=== PATIENT | female | born 1990 | race Caucasian/White ===

== ENCOUNTER 2018-01-07 17:59 | Inpatient (IN) | payer BC ==
[2018-01-07] MEDS: NA CHLORIDE 0.9% 1,000 ML IV SCH (22:10)
[2018-01-07] MEDS: Levofloxacin500mg IV 500 MG/100 ML BAG IV SCH (22:10)
--- NOTE | 2018-01-07 22:36 | P.HP ---
Certification for Inpatient Patient admitted to: Inpatient With expected LOS: >2 Midnights Practitioner: I am a practitioner with admitting privileges, knowledge of patient current condition, hospital course, and medical plan of care. Services: Services provided to patient in accordance with Admission requirements found in Title 42 Section 412.3 of the Code of Federal Regulations Patient History Date of Service: 01/07/18 Reason for admission: Sepsis, pyelonephritis History of Present Illness: Ms Rosado is a 27-year-old woman start about 3 days ago with fever, right flank pain radiated to abdomen. It was associated with nausea and vomiting. The pain was constant with periods of exacerbation, maximal intensity 8/10. She has never had these symptoms before. She denied any burning urination. Today she went to [facility], where UA was abnormal, lab work was remarkable for leukocytosis 14.2, CT abdomen and pelvis consistent with acute right pyelonephritis. The patient then was transferred to our facility to start IV antibiotics. Allergies No Known Allergies Allergy (Verified 01/07/18 20:39) - Past Medical/Surgical History Diabetic: No -: ovarian cyst -: laparotomy-ovarian cysectomy -: breast augmentation -: cesarian sectionx2 - Family History Father -: Stroke Mother Notes: no medical hx - Social History Smoking Status: Current every day smoker Counseled patient to stop smoking for: less than 10 minutes Smoking therapy provided: Yes Patient receptive to therapy: No Alcohol use: Yes CD- Drugs: No Caffeine use: Yes Place of Residence: Home Review of Systems 10-point ROS is otherwise unremarkable Physical Examination - Physical Exam General: Alert, In no apparent distress HEENT: Atraumatic, PERRLA, Mucous membr. moist/pink, EOMI, Sclerae nonicteric Neck: Supple, 2+ carotid pulse no bruit, No LAD, Without JVD or thyroid abnormality Respiratory: Clear to auscultation bilaterally, Normal air movement Cardiovascular: Regular rate/rhythm, Normal S1 S2 Gastrointestinal: Normal bowel sounds, Other (Right CVA positive), Tenderness ( Diffuse) Musculoskeletal: No tenderness Integumentary: No rashes Neurological: Normal speech, Normal strength at 5/5 x4 extr, Normal tone, Normal affect Lymphatics: No axilla or inguinal lymphadenopathy Assessment and Plan - Plan Assessment: 1. Pyelonephritis Plan: Will order empiric treatment with IV Levaquin. Follow-up blood and urine culture from [facility]. Her vital signs remained stable at the moment. - Advance Directives Does patient have a Living Will: No Does patient have a Durable POA for Healthcare: No - Code Status/Comfort Care Code Status Assessed: Yes Code Status: Full Code
[2018-01-08 00:37] LABS: Absolute Lymphocytes (CBC) 1.4 K/uL (0.7-4.9); Absolute Monocytes 0.8 K/uL (0.1-1.3); Absolute Neutrophil 12.8 K/uL (1.8-8.0); Basophils % 0.2 % (0-1.3); Eosinophils % 0.3 % (0-4.4); Hematocrit 34.8 % (36.0-45.0); Lymphocytes % 9.2 % (15.3-44.8); MCH 31.5 pg (27.0-35.0); MCV 90.5 fL (80-100); MPV 8.6 fL (7.6-11.3); Monocytes % 5.4 % (3.3-12.3); RBC Red Blood Cell Count 3.85 M/uL (3.86-4.86)
[2018-01-08 00:54] LABS: Albumin 2.6 g/dL (3.4-5.0); Bilirubin Total 0.4 mg/dL (0.2-1.0); Potassium 3.7 mmol/L (3.5-5.1); Protein, Total 5.7 g/dL (6.4-8.2)
[2018-01-08] MEDS ORDERED: NA CHLORIDE 0.9% 1,000 ML IV ONE (01:29)
[2018-01-08 01:37] LABS: Urine Appearance CLEAR; Urine Blood TRACE (NEG); Urine Color DK YELLOW; Urine Glucose NEGATIVE (NEG); Urine Protein 2+ (NEG); Urine Specific Gravity >=1.030 (1.005-1.030); Urine Urobilinogen 0.2 mg/dL (0.2-1.0); Urine pH 5.5 (5.0-7.0)
[2018-01-08 01:39] LABS: Urine Bilirubin NEGATIVE (NEG); Urine Microscopic Reflex ORDER UMIC
[2018-01-08 01:49] LABS: Urine Bacteria 20-50 /HPF (<20); Urine Culture Reflex Order REFLEXED
[2018-01-08] MEDS: NA CHLORIDE 0.9% 1,000 ML IV SCH ×2 (04:12→16:31)
[2018-01-08] MEDS: MORPHINE 2 MG/ML SYR IV PRN ×4 (05:03→23:23)
[2018-01-08 06:09] LABS: Absolute Lymphocytes (CBC) 1.5 K/uL (0.7-4.9); Absolute Monocytes 0.8 K/uL (0.1-1.3); Absolute Neutrophil 8.2 K/uL (1.8-8.0); Basophils % 0.2 % (0-1.3); Eosinophils % 2.3 % (0-4.4); Hematocrit 31.5 % (36.0-45.0); MCH 31.3 pg (27.0-35.0); MCV 91.8 fL (80-100); MPV 8.7 fL (7.6-11.3); Monocytes % 7.3 % (3.3-12.3); RBC Red Blood Cell Count 3.43 M/uL (3.86-4.86)
[2018-01-08 06:26] LABS: BUN Blood Urea Nitrogen 13 mg/dL (7-18); Bicarbonate 26 mmol/L (21-32); Glucose Level 101 mg/dL (74-106); Magnesium 1.8 mg/dL (1.8-2.4); Potassium 4.3 mmol/L (3.5-5.1); Sodium Level 140 mmol/L (136-145)
[2018-01-08] MEDS ORDERED: PNEUMOCOCCAL VACCINE 0.5 ML IMVAC ONE (08:00)
[2018-01-08] MEDS ORDERED: MAGNESIUM SULFATE 1 gm IVPB 1 GM/100 ML BAG IV ONE (09:00)
[2018-01-08] MEDS: ENOXAPARIN 40 MG/0.4 ML SQ SCH (09:15)
[2018-01-08] MEDS: ONDANSETRON 4 MG/2 ML VIAL IV PRN ×2 (11:28→17:24)
[2018-01-08] MEDS: ACETAMINOPHEN 500 MG TAB PO PRN ×3 (12:49→21:44)
--- NOTE | 2018-01-08 16:20 | P.PN ---
Subjective Date of Service: 01/08/18 Primary Care Provider: Dr. Bee Chief Complaint: Sepsis, pyelonephritis Subjective: Improving (Improved) Physical Examination - Vital Signs Temperature: 99.3 F Blood Pressure: 108/64 Pulse: 80 Respirations: 20 Pulse Ox (%): 100 - Physical Exam General: Alert, In no apparent distress, Oriented x3, Cooperative HEENT: Atraumatic Neck: Supple Respiratory: Clear to auscultation bilaterally, Normal air movement Cardiovascular: Normal pulses, Regular rate/rhythm Gastrointestinal: Normal bowel sounds, Soft and benign, Non-distended, Tenderness (Pain to right flank) Integumentary: No erythema, No warmth, No cyanosis Neurological: Normal speech, Normal strength at 5/5 x4 extr, Normal tone - Studies Laboratory Data (last 24 hrs) 01/08/18 05:34: Sodium 140, Potassium 4.3, BUN 13, Creatinine 0.60, Glucose 101 , Magnesium 1.8 01/08/18 05:34: WBC 10.7 D, Hgb 10.7 L, Hct 31.5 L, Plt Count 121 L D 01/08/18 00:20: Sodium 141, Potassium 3.7, BUN 13, Creatinine 0.80, Glucose 115 H, Total Bilirubin 0.4, AST 16, ALT 48, Alkaline Phosphatase 71 01/08/18 00:20: WBC 15.1 H, Hgb 12.1, Hct 34.8 L, Plt Count 155 Microbiology Data (last 24 hrs): 01/08/18 00:20 Blood - Blood Anaerobic Blood Culture - Final Assessment & Plan Discharge Plan: Home Plan to discharge in: 48 Hours Physician Review Additional Text: Impression: Acute right pyelonephritis Dehydration Anemia Plan: Will continue with IV antibiotic therapy and IV fluids. Will monitor electrolytes. Await urine culture results. Will reassess tomorrow. Encourage ambulation. Time Spent Managing Pts Care (In Minutes): 55
[2018-01-08] MEDS: Levofloxacin500mg IV 500 MG/100 ML BAG IV SCH (21:44)
[2018-01-09] MEDS: NA CHLORIDE 0.9% 1,000 ML IV SCH (02:10)
[2018-01-09 06:57] LABS: BUN Blood Urea Nitrogen 4 mg/dL (7-18); Bicarbonate 23 mmol/L (21-32); Glucose Level 67 mg/dL (74-106); Magnesium 1.4 mg/dL (1.8-2.4); Sodium Level 145 mmol/L (136-145)
[2018-01-09 07:09] LABS: Potassium 2.9 mmol/L (3.5-5.1)
[2018-01-09] MEDS: KCL 20 MEQ/100 mL IVPB 20 MEQ/100 ML BAG IV SCH ×3 (07:25→15:08)
[2018-01-09] MEDS: ENOXAPARIN 40 MG/0.4 ML SQ SCH (09:35)
[2018-01-09] MEDS: MORPHINE 2 MG/ML SYR IV PRN ×3 (09:35→21:44)
--- NOTE | 2018-01-09 12:45 | P.PN ---
Subjective Date of Service: 01/09/18 Primary Care Provider: Dr. Bee Chief Complaint: Sepsis, pyelonephritis Subjective: Improving Physical Examination - Vital Signs Temperature: 97.7 F Blood Pressure: 94/53 Pulse: 84 Respirations: 18 Pulse Ox (%): 92 - Physical Exam General: Alert, In no apparent distress, Oriented x3, Cooperative HEENT: Atraumatic Neck: Supple Respiratory: Clear to auscultation bilaterally, Normal air movement Cardiovascular: Normal pulses, Regular rate/rhythm Gastrointestinal: Normal bowel sounds, Soft and benign, Non-distended, Tenderness (Less pain to the right flank) Musculoskeletal: No erythema, No tenderness, No warmth Integumentary: No tenderness/swelling, No erythema, No warmth, No cyanosis Neurological: Normal speech, Normal strength at 5/5 x4 extr - Studies Laboratory Data (last 24 hrs) 01/09/18 05:20: Sodium 145, Potassium 2.9 L*, BUN 4 L, Creatinine 0.40 L, Glucose 67 L, Magnesium 1.4 L* Microbiology Data (last 24 hrs): 01/08/18 00:20 Blood - Blood Anaerobic Blood Culture - Final Medications List Reviewed: Yes Assessment & Plan Discharge Plan: Home Plan to discharge in: 24 Hours Physician Review Additional Text: Impression: Acute right pyelonephritis Dehydration Anemia Hypocalcemia Hypokalemia Hypomagnesia Plan: Acute right pyelonephritis: Continue with IV antibiotic. Await urine and blood cultures. Will to see if [facility] sent out urine culture. Encourage ambulation. Will provide incentive spirometer. Anticipate discharge in the next 24 hours. Dehydration: Continue with IV fluids. Adjustments made to IV fluids. Encourage ambulation and oral intake. Anemia: Likely dilutional. Will monitor. Hypocalcemia: Will check Ionized calcium, PTH, TSH. Will start Caltrate D. Will monitor. Hypokalemia: Will monitor and replace. Hypomagnesia: Will monitor and replace. Time Spent Managing Pts Care (In Minutes): 55
[2018-01-09] MEDS ORDERED: MAGNESIUM SULFATE 1 gm IVPB 1 GM/100 ML BAG IV ONE (14:00)
[2018-01-09 14:45] LABS: Absolute Monocytes 0.7 K/uL (0.1-1.3); Absolute Neutrophil 4.4 K/uL (1.8-8.0); Basophils % 0.2 % (0-1.3); Eosinophils % 1.2 % (0-4.4); MCV 91.6 fL (80-100); MPV 9.8 fL (7.6-11.3); Monocytes % 11.7 % (3.3-12.3); RBC Red Blood Cell Count 3.38 M/uL (3.86-4.86)
[2018-01-09] MEDS: NACHLORIDE 0.45% 1,000 ML IV SCH ×2 (15:08→23:18)
[2018-01-09] MEDS: ONDANSETRON 4 MG/2 ML VIAL IV PRN (15:37)
[2018-01-09 16:01] LABS: Thyroid Stimulating Hormone 2.1 uIU/mL (0.360-3.740)
[2018-01-09] MEDS ORDERED: KCL 20 MEQ/100 mL IVPB 20 MEQ/100 ML BAG IV SCH (20:26)
[2018-01-09] MEDS: CALCIUM CARB 500MG/VIT D 200 IU TAB PO SCH (20:45)
[2018-01-09] MEDS: Levofloxacin500mg IV 500 MG/100 ML BAG IV SCH (21:44)
[2018-01-09] MEDS ORDERED: Magnesium Sulfate 2gm IVPB 2 G/50 ML BAG IV ONE (22:23)
[2018-01-10 03:21] LABS: Absolute Lymphocytes (CBC) 1.4 K/uL (0.7-4.9); Absolute Monocytes 0.6 K/uL (0.1-1.3); Basophils % 0.3 % (0-1.3); Eosinophils % 2.9 % (0-4.4); Hematocrit 30.7 % (36.0-45.0); Lymphocytes % 27.1 % (15.3-44.8); MCH 31.2 pg (27.0-35.0); MCV 89.9 fL (80-100); MPV 9.1 fL (7.6-11.3); Monocytes % 10.9 % (3.3-12.3); RBC Red Blood Cell Count 3.42 M/uL (3.86-4.86)
[2018-01-10 03:36] LABS: BUN Blood Urea Nitrogen 5 mg/dL (7-18); Bicarbonate 29 mmol/L (21-32); Glucose Level 103 mg/dL (74-106); Magnesium 2.3 mg/dL (1.8-2.4); Potassium 4.4 mmol/L (3.5-5.1); Sodium Level 139 mmol/L (136-145)
[2018-01-10] MEDS: MORPHINE 2 MG/ML SYR IV PRN ×2 (04:26→10:40)
[2018-01-10] MEDS: ENOXAPARIN 40 MG/0.4 ML SQ SCH (09:22)
[2018-01-10] MEDS: ACETAMINOPHEN 500 MG TAB PO PRN (09:23)
[2018-01-10] MEDS: CALCIUM CARB 500MG/VIT D 200 IU TAB PO SCH (09:23)
[2018-01-10] MEDS: NACHLORIDE 0.45% 1,000 ML IV SCH (09:25)
--- NOTE | 2018-01-10 10:47 | P.DS ---
Admission Date: 01/07/18 Discharge Date: 01/10/18 Primary Care Provider: Dr. Bee Disposition: ROUTINE DISCHARGE Discharge Condition: GOOD Reason for Admission: Sepsis, pyelonephritis Procedures: CT scan: Right pyelonephritis Medical Problem List: Acute right pyelonephritis Dehydration Anemia likely dilutional from IV fluids Hypocalcemia, resolved Hypokalemia, resolved Hypomagnesia, resolved Brief History of Present Illness: 27-year-old female presented to outpatient ER. Patient found to have right pyelonephritis. Patient was transferred as a direct admit for treatment. Hospital Course: Patient was a direct admit from outpatient ER for Acute right pyelonephritis. Patient received IV antibiotic therapy during the course of her stay. Patient improved. Blood cultures negative and urine culture showing no growth.. At discharge she will continue with Cipro 500 mg 1 pill twice daily for 10 days. Recommendation is to recheck urine culture after 10 days to monitor resolution. Recommendation is for the patient to follow up with urology as an outpatient to establish care and reassess. UTI prevention education will be provided. Recommendation to increase oral fluid intake. Patient presented with dehydration and electrolyte abnormalities. This improved with IV fluids. At discharge electrolytes within normal range. Recommendation is to recheck lab-BMP in 1 week to monitor her progress. Patient had mild anemia likely delusional in nature. Recommendation is to recheck CBC in 1 week to monitor progress. Patient with adult ADD. Patient may continue with her medication. Patient with history of insomnia. Patient may continue with her medication. Vital Signs/Physical Exam: Temp Pulse Resp BP Pulse Ox 98.0 F 73 16 103/65 99 01/10/18 08:00 01/10/18 08:00 01/10/18 08:00 01/10/18 08:00 01/10/18 08:00 General: Alert, In no apparent distress, Oriented x3, Cooperative HEENT: Atraumatic Neck: Supple Respiratory: Clear to auscultation bilaterally, Normal air movement Cardiovascular: Normal pulses, Regular rate/rhythm Gastrointestinal: Normal bowel sounds, Soft and benign, Non-distended, No masses , No rebound, No guarding, Tenderness (Less pain to the right flank) Musculoskeletal: No erythema, No tenderness, No warmth Integumentary: No tenderness/swelling, No erythema, No warmth, No cyanosis Neurological: Normal speech, Normal strength at 5/5 x4 extr, Normal tone, Normal affect Laboratory Data at Discharge: WBC 5.1 K/uL (4.3-10.9) D 01/10/18 02:50 Hgb 10.7 g/dL (12.0-15.0) L 01/10/18 02:50 Hct 30.7 % (36.0-45.0) L 01/10/18 02:50 Plt Count 135 K/uL (152-406) L 01/10/18 02:50 Sodium 139 mmol/L (136-145) 01/10/18 02:50 Potassium 4.4 mmol/L (3.5-5.1) D 01/10/18 02:50 BUN 5 mg/dL (7-18) L 01/10/18 02:50 Creatinine 0.60 mg/dL (0.55-1.3) 01/10/18 02:50 Glucose 103 mg/dL (74-106) 01/10/18 02:50 Magnesium 2.3 mg/dL (1.8-2.4) D 01/10/18 02:50 Total Bilirubin 0.4 mg/dL (0.2-1.0) 01/08/18 00:20 AST 16 U/L (15-37) 01/08/18 00:20 ALT 48 U/L (12-78) 01/08/18 00:20 Alkaline Phosphatase 71 U/L (45-117) 01/08/18 00:20 Home Medications: Lisdexamfetamine Dimesylate [Vyvanse] 60 mg PO DAILY 01/08/18 Zolpidem Tartrate [Ambien*] 10 mg PO BEDTIME PRN PRN 01/08/18 Ciprofloxacin HCl [Cipro 500 MG Tablet] 500 mg PO BID #20 tab 01/10/18 New Medications: Ciprofloxacin HCl [Cipro 500 MG Tablet] 500 mg PO BID #20 tab Patient Discharge Instructions: 1. Patient will need a follow up with her PCP in 1 week to follow up this hospitalization. 2. Patient was a direct admit from outpatient ER for Acute right pyelonephritis. Patient received IV antibiotic therapy during the course of her stay. Patient improved. Blood cultures negative. Urine culture showing no growth. At discharge she will continue with Cipro 500 mg 1 pill twice daily for 10 days. Recommendation is to recheck urine culture after 10 days to monitor resolution. Recommendation is for the patient to follow up with urology as an outpatient to establish care and reassess. UTI prevention education will be provided. Recommend to increase oral fluid intake. 3. Patient presented with dehydration and electrolyte abnormalities. This improved with IV fluids. At discharge electrolytes within normal range. Recommendation is to recheck lab-BMP in 1 week to monitor her progress. 4. Patient had mild anemia likely dilutional in nature. Recommendation is to recheck CBC in 1 week to monitor progress. 5. Patient with adult ADD. Patient may continue with her medication. 6. Patient with history of insomnia. Patient may continue with her medication. Diet: AHA Activity: Ad emily Time spent managing pt's care (in minutes): 55
== END 2018-01-10 12:43 | disposition home or self-care (01) | DRG 690 ==
LOC: 2ND 18:34
PROVIDERS: ADMIT Family Medicine; ATTEND Internal Medicine
DX: N10 Acute pyelonephritis (principal); E86.0 Dehydration; D64.9 Anemia, unspecified; E83.51 Hypocalcemia; E87.6 Hypokalemia; E83.42 Hypomagnesemia; F98.8 Other specified behavioral and emotional disorders with onset usually occurring in childhood and adolescence
CPT/HCPCS: 36415; 80048; 80053; 81003; 81015; 82330; 83605; 83735; 83970; 84439; 84443; 85025; 87040; 87086; 87088; J1650; J2270; J2405; J3475; J7030

== ENCOUNTER 2024-02-04 10:17 | Emergency (ER) | payer BC ==
[2024-02-04] MEDS ORDERED: KETOROLAC 30 MG/ML INJ ONE ×2 (10:36→13:20)
[2024-02-04] MEDS ORDERED: NA CHLORIDE 0.9% 1,000 ML ONE (10:37)
[2024-02-04] MEDS ORDERED: MORPHINE 4 MG/ML SYR ONE (10:37)
[2024-02-04 10:57] LABS: Absolute Lymphocytes (CBC) 1.5 K/uL (0.7-4.9); Absolute Monocytes 0.2 K/uL (0.1-1.3); Absolute Neutrophil 3.4 K/uL (1.8-8.0); Basophils % 0.4 % (0-1.3); Eosinophils % 0.8 % (0-4.4); Hematocrit 44.4 % (36.0-45.0); Hemoglobin 14.8 g/dL (12.0-15.0); Lymphocytes % 29.4 % (15.3-44.8); MCH 31.2 pg (27.0-35.0); MCHC 33.2 g/dL (32.0-36.0); MCV 93.9 fL (80-100); MPV 8.2 fL (7.6-11.3); Monocytes % 4.4 % (3.3-12.3); Platelets 281 thou/uL (152-406); RBC Red Blood Cell Count 4.73 M/uL (3.86-4.86); Red Cell Distribution Width 12.2 % (12.1-15.2)
[2024-02-04 11:15] LABS: Albumin 4.8 g/dL (3.4-5.0); Albumin/Globulin Ratio 1.1 (1.1-1.8); Anion Gap 5.9 mEq/L (5.0-15.0); Bilirubin Total 0.6 mg/dL (0.2-1.0); Globulin 4.3 g/dL (2.3-3.5); Potassium 3.9 mEq/L (3.5-5.1); Protein, Total 9.1 g/dL (6.4-8.2)
[2024-02-04 11:33] LABS: Specific Gravity 1.016 (1.005-1.030)
[2024-02-04 11:35] LABS: Specific Gravity 1.016 (1.005-1.030); Sqamous Epithelial <5 /HPF (None Seen); Urine Bacteria 20-50 /HPF (<20); Urine Bilirubin NEGATIVE (Negative); Urine Blood Negative (Negative); Urine Clarity Extremely Turbid (Clear); Urine Color Light-Yellow (Yellow); Urine Culture Reflex Order REFLEXED; Urine Glucose NEGATIVE (Negative); Urine Ketones NEGATIVE (Negative); Urine Microscopic Reflex YN ORDER UMIC; Urine Mucus 1+ /HPF (None Seen); Urine Nitrite NEGATIVE (Negative); Urine Protein TRACE (Negative); Urine RBC <5 /HPF (None Seen); Urine Urobilinogen Normal (Normal); Urine WBC 20-50 /HPF (<5); Urine pH 6.5 (5.0-7.0)
--- NOTE | 2024-02-04 12:34 | RAD REPORT ---
EXAMINATION: CT ABDOMEN AND PELVIS WITH CONTRAST CLINICAL INDICATION: Abd pain;Flank pain TECHNIQUE: CT abdomen and pelvis was performed, after the administration of IV contrast, as per [facility] protocol. Axial, sagittal and coronal reconstructions were obtained. One or more of the following dose reduction techniques were used: Automated exposure control, adjustment of the mA and k V according to patient size, and iterative reconstruction. Unless otherwise specified, incidental findings do not require dedicated imaging follow-up. COMPARISON: No prior exam. FINDINGS: LOWER CHEST: The visualized lung bases are clear. LIVER: Normal in size and contour. No focal lesion. Grossly unremarkable gallbladder. SPLEEN: Normal size. No focal lesion. PANCREAS: No mass, ductal dilation, or estrella-pancreatic fluid. ADRENALS: Normal; no mass. KIDNEYS: Normal size and contour. No hydronephrosis. GASTROINTESTINAL TRACT: No evidence of free air, significant intra-abdominal free fluid, bowel obstru ction or abscess. Moderate stool retention throughout the colon. APPENDIX: Normal appendix. LYMPH NODES: No lymphadenopathy. MUSCULOSKELETAL: No acute or suspicious osseous abnormality. ADDITIONAL FINDINGS: Trace pelvic free fluid, within physiologic limits. IMPRESSION: No acute or concerning abnormalities seen in the abdomen or pelvis.
--- NOTE | 2024-02-04 13:06 | EDPHYS ---
Physician Documentation [facility] Name: Viry Rosado Age: 33 yrs Sex: Female : 1990 Arrival Date: 02/04/2024 Time: 10:17 Bed 17 Private MD: ED Physician Nader Gomez HPI: 02/03 10:31 This 33 yrs old Female presents to ER via Ambulatory with complaints of ec2 Headache, Kidney pain. 10:31 Patient arrives today for evaluation of right flank pain. Patient reports right flank ec2 pain into the right abdomen. Patient reports associated nausea. Patient reports decreased p.o. intake. History of kidney infections. Patient reports LMP was approximately 2 weeks ago.. 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 - Infectious Disease History:: Denies. - Social history:: Smoking status: Reported history of juuling and/or vaping. Patient uses alcohol, occasionally. ROS: 10:31 Constitutional: as per hpi ec2 Exam: 10:31 Constitutional: GEN: NAD Head: atraumatic Eyes: EOMI Ears: External ears are ec2 normal. CV: tachycardia LUNGS: no respiratory distress ABD: non-distended, soft, tender in the right lower quadrant, not guarding, not rigid SKIN: no evidence of rashes MSK: no evidence of trauma Vital Signs: 10:24 BP 149 / 106; Pulse 106; Resp 19; Temp 98.7(O); Pulse Ox 100% on R/A; MAP 118 mmHg; tm6 Weight 54.88 kg; Height 5 ft. 4 in. ; Pain 10/10; 11:09 BP 132 / 95; Pulse 84; Resp 17; Pulse Ox 99% on R/A; rs5 13:10 BP 139 / 88; Pulse 85; Resp 17; Pulse Ox 98% on R/A; rs5 10:24 Body Mass Index 20.77 (54.88 kg, 162.56 cm) tm6 10:24 Pain Scale: Adult tm6 MDM: 10:31 Data reviewed: vital signs. ED course: Patient arrives today for evaluation of ec2 right-sided abdominal pain. Examination remarkable for right-sided abdominal tenderness. Slight tachycardia noted. Will obtain lab work, CT imaging, urine studies. Will give the patient morphine for pain as well as Toradol and Zofran.. 10:49 Medical Screening Exam initiated ec2 13:05 ED course: Lab work pertinent for urinary tract infection, CT imaging is nonacute. Will ec2 discharge home on antibiotics for urinary tract infection. Return precautions given. 02/03 10:31 Order name: CBC with Diff; Complete Time: 10:59 ec2 02/03 10:31 Order name: CMP; Complete Time: 11:33 ec2 02/03 10:31 Order name: Lipase; Complete Time: 11:33 ec2 02/03 10:31 Order name: Test, Urine; Complete Time: 11:33 ec2 02/03 10:31 Order name: Urinalysis w/ reflexes; Complete Time: 11:46 ec2 02/03 11:41 Order name: Urine Culture EDAZ 02/03 10:31 Order name: CT Abd/Pelvis - IV Contrast Only; Complete Time: 13:00 ec2 02/03 10:31 Order name: IV Saline Lock; Complete Time: 10:50 ec2 02/03 10:31 Order name: Labs collected and sent; Complete Time: 10:50 ec2 02/03 13:05 Order name: PO challenge; Complete Time: 13:06 ec2 Administered Medications: 10:40 Drug: TORadol - Ketorolac IVP 15 mg IVP once Route: IVP; Site: left antecubital; rs5 11:01 Follow up: Response: No adverse reaction; Pain is decreased rs5 10:40 Drug: morphine IVP or IV 4 mg IVP once over 4 mins Route: IVP; Infused Over: 4 mins; rs5 Site: left antecubital; 11:01 Follow up: Response: No adverse reaction; Pain is decreased rs5 10:40 Drug: NS 0.9% IV 1000 ml IV at 1 bolus Per protocol; to be given as a bolus over 60 rs5 minutes Route: IV; Rate: 1 bolus; Site: left antecubital; 11:41 Follow up: Response: No adverse reaction; IV Status: Completed infusion; IV Intake: rs5 1000ml 13:13 Drug: Trimethoprim-Sulfamethoxazole PO (160 mg-800 mg (DS) 1 tablet PO once Route: PO; kc6 13:30 Follow up: Response: No adverse reaction rs5 13:28 Drug: Ketorolac IVP 15 mg IVP once Route: IVP; Site: left antecubital; kc6 Disposition Summary: 02/04/24 13:06 Discharge Ordered Notes: Location: Home ec2 Condition: Stable ec2 Diagnosis - UTI/ Urinary tract infection, site not specified ec2 Followup: ec2 - With: Private Physician - When: - Reason: Recheck today's complaints Discharge Instructions: - Discharge Summary Sheet ec2 - Urinary Tract Infection, Adult ec2 Forms: - Medication Reconciliation Form ec2 - Antibiotic Education ec2 - Prescription Opioid Use ec2 - Patient Portal Instructions ec2 - Leadership Thank You Letter ec2 Prescriptions: - Bactrim DS 800-160 mg Oral Tablet - take 1 tablet ORAL route every 12 hours for 7 days; 14 tablet; Refills: 0, ec2 Product Selection Permitted Signatures: Dispatcher [employer] Lesvia Dennis RN RN kc6 Josr Melendez RN RN rs5 Nader Gomez MD MD ec2 Magy Cunningham RN RN tm6 Corrections: (The following items were deleted from the chart) 10:31 10:31 CBC+H.LAB.BRZ ordered. EDMS EDMS 10:31 10:31 COMPREHENSIVE METABOLIC PANEL+C.LAB.BRZ ordered. EDMS EDMS 10:31 10:31 LIPASE+C.LAB.BRZ ordered. EDMS EDMS 10:31 10:31 Test, Urine+UC.LAB.BRZ ordered. EDMS EDMS 10:31 10:31 Urinalysis+U.LAB.BRZ ordered. EDMS EDMS 10:33 10:31 Constitutional: GEN: NAD Head: atraumatic Eyes: EOMI Ears: External ears are ec2 normal. CV: regular rate LUNGS: no respiratory distress ABD: non-distended, soft, tender in the right lower quadrant, not guarding, not rigid SKIN: no evidence of rashes MSK: no evidence of trauma ec2
--- NOTE | 2024-02-04 13:06 | ER ---
Nurse's Notes [facility] Name: Viry Rosado Age: 33 yrs Sex: Female : 1990 Arrival Date: 02/04/2024 Time: 10:17 Bed 17 Private MD: Diagnosis: UTI/ Urinary tract infection, site not specified Presentation: 02/03 10:25 Chief complaint: Patient states: right low back was hurting on Sunday, but I was out tm6 working. This weekend it kept hurting and I started to feel sick. I've had a severe kidney infection with urosepsis. Headache and nausea started today. Took a zofran 10 min prior to coming into ER. Having dark urine. Coronavirus screen: Client denies travel out of the [place] in the last 14 days. Ebola Screen: Patient negative for fever greater than or equal to 101.5 degrees Fahrenheit, and additional compatible Ebola Virus Disease symptoms Patient denies exposure to infectious person. Patient denies travel to an Ebola-affected area in the 21 days before illness onset. No symptoms or risks identified at this time. Risk Assessment: Do you want to hurt yourself or someone else? Patient reports no desire to harm self or others. 10:25 Method Of Arrival: Ambulatory tm6 10:25 Acuity: DOR[place] 3 tm6 10:29 Initial Sepsis Screen: Does the patient meet any 2 criteria? HR > 90 bpm. Does the tm6 patient have a suspected source of infection? No. Patient's initial sepsis screen is negative. Onset of symptoms was February 01, 2024. Triage Assessment: 10:30 Headache History: The patient has had previous headaches. General: Appears tm6 uncomfortable, Behavior is calm, cooperative. Pain: Complains of pain in head and right low back Pain currently is 10 out of 10 on a pain scale. Pain began 2-3 days ago. Also complains of nausea. EENT: No signs and/or symptoms were reported regarding the EENT system. Neuro: Level of Consciousness is awake, alert, obeys commands, Oriented to person, place, time, situation, Reports headache. Cardiovascular: Patient's skin is warm and dry. Respiratory: Airway is patent Respiratory effort is even, unlabored, Respiratory pattern is regular, symmetrical. GI: No signs and/or symptoms were reported involving the gastrointestinal system. Abdomen is flat, non-distended. : Reports dark urine. Derm: No signs and/or symptoms reported regarding the dermatologic system. Musculoskeletal: Reports pain in right low back Pain is 10 out of 10 on a pain scale. C[employer]AM[employer]IST: 10:24 LMP 01/22/2024, unknown tm6 Historical: - Allergies: 10:29 No Known Allergies; tm6 - PMHx: 10:29 ADD; tm6 - PSHx: 10:28 section; tm6 - Immunization history:: Client reports having NOT received the Covid vaccine. - Infectious Disease History:: Denies. - Social history:: Smoking status: Reported history of juuling and/or vaping. Patient uses alcohol, occasionally. Screenin:35 [facility] Fall Risk Assessment (Adult) History of falling in the last 3 months, rs5 including since admission No falls in past 3 months (0 pts) Confusion or Disorientation No (0 pts) Intoxicated or Sedated No (0 pts) Impaired Gait No (0 pts) Mobility Assist Device Used No (0 pt) Altered Elimination No (0 pt) Score/Fall Risk Level 0 - 2 = Low Risk Oriented to surroundings, Maintained a safe environment. Abuse screen: Denies threats or abuse. Nutritional screening: No deficits noted. Tuberculosis screening: No symptoms or risk factors identified. Assessment: 10:33 Pain: Complains of pain in right low back and head Pain currently is 8 out of 10 on a rs5 pain scale. Quality of pain is described as aching, Is continuous. 10:33 General: Appears in no apparent distress. uncomfortable, Behavior is cooperative. rs5 Neuro: Level of Consciousness is awake, alert, obeys commands, Oriented to person, place, time, situation. Cardiovascular: Patient's skin is warm and dry. Respiratory: Airway is patent Respiratory effort is even, unlabored, Respiratory pattern is regular, symmetrical. GI: Abdomen is round non-distended, Abd is soft and non tender X 4 quads. : No signs and/or symptoms were reported regarding the genitourinary system. EENT: No signs and/or symptoms were reported regarding the EENT system. Derm: Skin is intact, Skin is pink, warm \T\ dry. Musculoskeletal: Range of motion: intact in all extremities. 11:09 Reassessment: Patient and/or family updated on plan of care and expected duration. Pain rs5 level reassessed. Patient is alert, oriented x 3, equal unlabored respirations, skin warm/dry/pink. 12:12 Reassessment: Patient and/or family updated on plan of care and expected duration. Pain rs5 level reassessed. Patient is alert, oriented x 3, equal unlabored respirations, skin warm/dry/pink. 13:20 Reassessment: No changes from previously documented assessment. rs5 Vital Signs: 10:24 BP 149 / 106; Pulse 106; Resp 19; Temp 98.7(O); Pulse Ox 100% on R/A; MAP 118 mmHg; tm6 Weight 54.88 kg; Height 5 ft. 4 in. ; Pain 10/10; 11:09 BP 132 / 95; Pulse 84; Resp 17; Pulse Ox 99% on R/A; rs5 13:10 BP 139 / 88; Pulse 85; Resp 17; Pulse Ox 98% on R/A; rs5 10:24 Body Mass Index 20.77 (54.88 kg, 162.56 cm) tm6 10:24 Pain Scale: Adult tm6 ED Course: 10:19 Patient arrived in ED. im 10:19 Nader Gomez MD is Attending Physician. ec2 10:28 Triage completed. tm6 10:30 Arm band placed on right wrist. tm6 10:33 Josr Melendez, RN is Primary Nurse. rs5 10:35 Patient has correct armband on for positive identification. Placed in gown. Bed in low rs5 position. Call light in reach. Side rails up X2. 10:35 No provider procedures requiring assistance completed. rs5 10:50 CBC with Diff Sent. nh2 10:50 CMP Sent. nh2 10:50 Lipase Sent. nh2 10:51 Initial lab(s) drawn, by me, sent to lab. Inserted saline lock: 20 gauge in left nh2 antecubital area, using aseptic technique. Blood collected. Flushed with 10 mL NS. 11:56 CT Abd/Pelvis - IV Contrast Only In Process Unspecified. EDMS 13:13 Patient requests pain medication. kc6 13:29 IV discontinued, intact, bleeding controlled, No redness/swelling at site. Pressure kc6 dressing applied. Administered Medications: 10:40 Drug: TORadol - Ketorolac IVP 15 mg IVP once Route: IVP; Site: left antecubital; rs5 11:01 Follow up: Response: No adverse reaction; Pain is decreased rs5 10:40 Drug: morphine IVP or IV 4 mg IVP once over 4 mins Route: IVP; Infused Over: 4 mins; rs5 Site: left antecubital; 11:01 Follow up: Response: No adverse reaction; Pain is decreased rs5 10:40 Drug: NS 0.9% IV 1000 ml IV at 1 bolus Per protocol; to be given as a bolus over 60 rs5 minutes Route: IV; Rate: 1 bolus; Site: left antecubital; 11:41 Follow up: Response: No adverse reaction; IV Status: Completed infusion; IV Intake: rs5 1000ml 13:13 Drug: Trimethoprim-Sulfamethoxazole PO (160 mg-800 mg (DS) 1 tablet PO once Route: PO; kc6 13:30 Follow up: Response: No adverse reaction rs5 13:28 Drug: Ketorolac IVP 15 mg IVP once Route: IVP; Site: left antecubital; kc6 Medication: 11:09 VIS not applicable for this client. rs5 Intake: 11:41 IV: 1000ml; Total: 1000ml. rs5 Outcome: 13:06 Discharge ordered by MD. ec2 13:29 Discharged to home ambulatory, with significant other, kc6 13:29 Condition: good 13:29 Discharge instructions given to patient, significant other, Instructed on discharge instructions, follow up and referral plans. medication usage, Demonstrated understanding of instructions, follow-up care, medications, Prescriptions given X 1, 13:29 Patient left the ED. kc6 Addendum: 02/07/2024 07:47 Addendum: Culture Results: Positive urine culture. No further action required. Bacteria s s sensitive to prescribed antibiotic. Signatures: Dispatcher [employer] Chelsey Slaughter RN RN ss Campbell, Kaitlyn, RN RN kc6 Sotelo, Ricky, RN RN rs5 Sunshine Medina Edwin, MD MD ec2 Magy Cunningham RN RN tm6 [facility] Schuler [facility] Corrections: (The following items were deleted from the chart) 02/03 10:29 10:25 Chief complaint: Patient states: right low back was hurting on Sunday, but I was tm6 out working. This weekend it kept hurting and I started to feel sick. I've had a severe kidney infection with urosepsis. Headache and nausea started today. Took a zofran 10 min prior to coming into ER tm6 18:00 14:24 Reassessment: Patient and/or family updated on plan of care and expected rs5 duration. Pain level reassessed. Patient is alert, oriented x 3, equal unlabored respirations, skin warm/dry/pink. rs5
[2024-02-04] MEDS ORDERED: SMZ./TMP. 800/160 MG TABLET ONE (13:09)
[2024-02-04 14:13] VITALS: TEMP 98.7
[2024-02-04 14:14] VITALS: BP 132/95; O2SAT 99
== END 2024-02-04 13:29 | disposition home or self-care (01) ==
LOC: ER 10:17
DX: N39.0 Urinary tract infection, site not specified (principal)
CPT/HCPCS: 87088; 85025; 81001; 87086; 36415; 81025; 87077; 87186; 83690; 80053; 74177; Q9967; J7030; 96361; 96374; 96375; 99284